=== PATIENT | female | born 1975 | race Caucasian/White ===

== ENCOUNTER 2021-04-27 16:39 | Emergency (ER) | payer MEDICAID ==
[2021-04-27] MEDS ORDERED: Lidocaine 2% 5 ML SDV INJECT ONE (17:08)
[2021-04-27] MEDS ORDERED: Diphtheria,Pertussis(Acell),Tetanus Vaccine 0.5 ML Syringe IM ONE (17:09)
--- NOTE | 2021-04-27 17:09 | EDM.PDOC ---
ED HPI GENERAL MEDICAL PROBLEM - General Chief Complaint: Laceration Stated Complaint: laceration to left hand Time Seen by Provider: 04/27/21 16:48 Source of Information: Reports: Patient - History of Present Illness INITIAL COMMENTS - FREE TEXT/NARRATIVE: Renae is a 45 y/o female who was cutting the fat off some steak tonight and the knife slipped and she cut her left hand. Unsure of last tetanus immunization. Treatments FIELD UNDERWRITER: Reports: Other (see below) Other Treatments FIELD UNDERWRITER: liquid bandaid - Related Data Allergies Allergy/AdvReac Type Severity Reaction Status Date / Time No Known Allergies Allergy Verified 04/27/21 16:40 ED ROS GENERAL - Review of Systems Review Of Systems: See Below Constitutional: Reports: No Symptoms HEENT: Reports: No Symptoms Respiratory: Reports: No Symptoms Cardiovascular: Reports: No Symptoms Endocrine: Reports: No Symptoms GI/Abdominal: Reports: No Symptoms : Reports: No Symptoms Musculoskeletal: Reports: No Symptoms Skin: Reports: Wound (cut to left hand near base of left 4th metacarpal) ED EXAM, SKIN/RASH Exam: See Below General Appearance: Alert, WD/WN, No Apparent Distress (Adult female) Ears: Hearing Grossly Normal Head: Atraumatic, Normocephalic Neck: Supple Respiratory/Chest: No Respiratory Distress Cardiovascular: Regular Rate, Rhythm GI/Abdominal: Soft (Female) Exam: Deferred Rectal (Female) Exam: Deferred Extremities: Other (Note 1.5cm laceration with clean edges to base of left 4th phalanges, mildly bleeding. ROM wnl, PIP/DIP tendons intact.) Psychiatric: Normal Affect Skin: Warm, Dry, Intact, Normal Color Course - Vital Signs Text/Narrative:: 1648 The patient was seen by the CAN WORKER. The laceration was repaired, see procedure note. Procedure Note Laceration Repair Following verbal consent of the patient, risks, benefits, and alternatives were reviewed. The wound on the left was prepped with Betadine. Lidocaine 2% was used for local anesthesia. Two interrupted sutures of 4-0 Vicryl was used for wound closure. Dressing was applied. Wound care instructions were reviewed. The patient tolerated the procedure well. Last Tetanus was unknown.Tdap was given today. EBL=minimal TdaP was given. Written instructions were given and she left the ER in stable condition. Departure - Departure Time of Disposition: 17:23 Disposition: Home, Self-Care 01 Condition: Good Clinical Impression: Need for Tdap vaccination, Accidental injury Laceration of hand, left Qualifiers: Encounter type: initial encounter Foreign body presence: without foreign body Qualified Code(s): S61.412A - Laceration without foreign body of left hand, initial encounter - Discharge Information *PRESCRIPTION DRUG MONITORING PROGRAM REVIEWED*: Not Applicable *COPY OF PRESCRIPTION DRUG MONITORING REPORT IN PATIENT MONALISA: Not Applicable Instructions: VIS, Tetanus, Diphtheria (Td); Tetanus, Diphtheria, Pertussis (Tdap) - CDC, Laceration Care, Adult, [id number] Additional Instructions: -Ibuprofen 200mg 3 tablets oral every 6 hours as needed for pain -Acetaminophen 325mg 2-3 tablets oral every 4-6 hours as needed for pain -Keep dressing to wound dry and intact for 24 hours, then you may wash the wound daily with soap and water. -Watch for signs of infection and seek care at the clinic or ER if needed -The sutures that were placed today will dissolve over the next 2-3 weeks, so you do not need to return to the clinic for removal. Allow them to dissolve and and do note attempt to pick or cut them out for at least 2 weeks. -Your Tetanus was updated at today's visit. Last TDap was unknown. - Problem List & Annotations (1) Accidental injury SNOMED Code(s): 244580615 Code(s): T14.90XA - INJURY, UNSPECIFIED, INITIAL ENCOUNTER Status: Acute Current Visit: Yes (2) Laceration of hand, left SNOMED Code(s): 173170708 Code(s): S61.412A - LACERATION WITHOUT FOREIGN BODY OF LEFT HAND, INIT ENCNTR Status: Acute Current Visit: Yes Qualifiers: Encounter type: initial encounter Foreign body presence: without foreign body Qualified Code(s): S61.412A - Laceration without foreign body of left hand, initial encounter (3) Need for Tdap vaccination SNOMED Code(s): 240197571, 102802653944319 Code(s): Z23 - ENCOUNTER FOR IMMUNIZATION Status: Acute Current Visit: Yes - Problem List Review Problem List Initiated/Reviewed/Updated: Yes - Assessment/Plan Plan: See Above
[2021-04-27] MEDS ORDERED: Bacitracin Oint 1 GM U/D Packet TOP ONE (17:16)
== END 2021-04-27 17:45 | disposition home or self-care (01) ==
LOC: LL.ED 16:39
DX: S61.412A Laceration without foreign body of left hand, initial encounter (principal); Z23 Encounter for immunization; W26.0XXA Contact with knife, initial encounter
CPT/HCPCS: 12001; 90471; 90715; 99282-25; 99283